=== PATIENT | female | born 1970 | race Caucasian/White ===

== ENCOUNTER 2017-12-19 11:33 | Emergency (ER) | payer OTHER ==
[2017-12-19] MEDS ORDERED: Ibuprofen 800 MG TAB ONE (12:01)
[2017-12-19] MEDS ORDERED: HYDROcodone/Acetaminophen 10/325 mg Tablet ONE (12:01)
--- NOTE | 2017-12-19 12:47 | RAD ---
AP VIEW CHEST: 12/19/2017 HISTORY: Trauma with chest injury. FINDINGS: The lungs are well aerated. No evidence of active intrathoracic disease is seen. No evidence of eff usions, pneumonia, or pneumothorax is seen. Left 6th rib fracture is seen. IMPRESSION: Left 6th rib fracture. No associated pneumothorax. POS: [facility]
[2017-12-19] MEDS ORDERED: Diazepam 5 MG TAB ONE (12:52)
--- NOTE | 2017-12-19 13:44 | RAD ---
2 VIEWS LEFT HUMERUS: Date: 12/19/17 HISTORY: Fall from horse 3 days ago. FINDINGS: AP and lateral views left humerus obtained. Two views of the left humerus demonstrates no evidence of left humeral fractures, subluxations, or alis ny lesions. IMPRESSION: Normal 2 views left humerus. POS: [facility]
--- NOTE | 2017-12-19 13:52 | RAD ---
2 VIEWS LEFT SHOULDER: Date: 12/19/17 HISTORY: Left shoulder pain, injury. FINDINGS: AP internally and externally rotated view of left shoulder demonstrate no evidence of left shoulder f ractures, subluxations, or bony lesions. IMPRESSION: Normal 2 views left shoulder. POS: [facility]
== END 2017-12-19 13:15 | disposition home or self-care (01) ==
LOC: MADERS 11:33
DX: S22.32XA Fracture of one rib, left side, initial encounter for closed fracture (principal); F17.210 Nicotine dependence, cigarettes, uncomplicated; Z79.899 Other long term (current) drug therapy; V80.010A Animal-rider injured by fall from or being thrown from horse in noncollision accident, initial encounter
CPT/HCPCS: 71045

== ENCOUNTER 2019-05-01 20:10 | Emergency (ER) | payer OTHER ==
[2019-05-01] MEDS ORDERED: Ketorolac Tromethamine 60 MG/2 ML VIAL ONE (20:52)
--- NOTE | 2019-05-01 21:01 | RAD ---
3 views left foot: 05/01/2019 COMPARISON: None HISTORY: Injury, trauma, pain FINDINGS: Mild degenerative change noted at the first interphalangeal joint. On the lateral examinati on there is soft tissue swelling seen along the dorsal aspect of the midfoot. There is subtle linear cortical irregularity on the lateral examination involving the dorsal aspect of the foot at th e junction of the tarsal bones and metatarsals. This may signify a subtle nondisplaced fracture, not visualized on the oblique image or frontal view. No widening of the Lisfranc interval. IMPRESSION: Dorsal soft tissue swelling with mild cortical irregularity at the junction of the mid fo ot and forefoot as detailed above. Recommend immobilization and follow-up imaging in 7-10 days. Alternatively, CT examination may be beneficial to evaluate for an underlying fracture.
== END 2019-05-01 21:20 | disposition home or self-care (01) ==
LOC: MADERS 20:10
DX: S92.902A Unspecified fracture of left foot, initial encounter for closed fracture (principal); F41.9 Anxiety disorder, unspecified; F17.210 Nicotine dependence, cigarettes, uncomplicated; W55.19XA Other contact with horse, initial encounter
CPT/HCPCS: 96372; J1885

== ENCOUNTER 2022-03-28 08:49 | Outpatient (CLI) | payer OTHER ==
[2022-03-28 09:20] LABS: #Basophils 0.2 thou/uL (0.0-0.2); #Eosinphils 0.2 thou/uL (0.0-0.7); #Lymphocytes 2.5 thou/uL (1.20-3.40); #Monocytes 0.7 thou/uL (0.11-0.59); #Neutrophils 4.3 thou/uL (1.40-6.50); %Eosinophils 2.1 % (0.0-10.0); %Lymphocytes 32.3 % (21.0-51.0); %Monocytes 8.7 % (0.0-10.0); %Neutrophils 54.8 % (42.0-75.0); Mean Corpuscular Hemoglobin 31.1 pg (27.0-31.0); Mean Corpuscular Volume 91.4 fl (78.0-98.0); Mean Platelet Volume 8.2 fL (7.4-10.4); Platelet Count 223 10x3/uL (130-400); Red Blood Cell (RBC) Count 4.82 mill/uL (4.20-5.40); White Blood Cell (WBC) Count 7.7 10x3/uL (4.8-10.8)
== END 2022-03-28 08:50 | disposition home or self-care (01) ==
LOC: MADLAB 08:49
PROVIDERS: ATTEND Orthopaedic Surgery Orthopaedic Surgery of the Spine
DX: Z01.818 Encounter for other preprocedural examination (principal)
CPT/HCPCS: 36415; 71046; 85025; 93005; 93010

== ENCOUNTER 2022-04-11 11:04 | Outpatient (CLI) | payer OTHER | END 2022-04-11 11:05 | disposition home or self-care (01) | LOC: MADRAD 11:04 | PROVIDERS: ATTEND Orthopaedic Surgery Orthopaedic Surgery of the Spine | DX: M43.16 Spondylolisthesis, lumbar region (principal); M47.816 Spondylosis without myelopathy or radiculopathy, lumbar region | CPT/HCPCS: 72100 ==